=== PATIENT | male | born 1950 | race Caucasian/White ===

== ENCOUNTER 2020-04-08 06:25 | Day surgery (SDC) | payer BC ==
[~2020-04-08] VITALS: Ht 172.7 cm; Wt 89.0 kg
[~2020-04-08 06:25] MED LIST: ALPR.25 PO; ALPR.5 PO; ASPI325 PO; ASPI81CH PO; ATOR80 PO; Adult Low Dose81 MG PO; CLOP75 PO; FAMO20 PO; HYDACE10B PO; HYDMOR2 PO; HYDR1TAB94 PO; LANS30EC PO; LIVALO2 MG PO; METO25ER PO; NEXIUM 24HR20 M1 PO; NITR.4SL PO; NITR.4SL SL; NITR.6SL SL; OMEP20ER PO; OXYACE5T PO; OXYACE7.5T PO; OXYC10ER PO; PANT40 PO; Prenatabs FA T1 EACH PO; ROSU10TA PO; TAMS.4ER PO; TICA90TA PO
--- NOTE | 2020-04-08 14:38 | NUR ---
TR BAND IS FULLY DEFLATED, NO ACTIVE BLEEDING, WILL REMOVE TR BAND IN ONE HOUR, ARM BOARD REMAINS IN PLACE. GOOD PULSES NOTED
--- NOTE | 2020-04-08 15:45 | NUR ---
TR BAND REMOVED, NO ACTIVE BLEEDING, TEGADERM IN PLACE, ARM BOARD REMAINS IN PLACE. RADIAL PULSE STRONG
--- NOTE | 2020-04-08 17:38 | NUR ---
SHIFT NOTE PT [facility]IVED [facility] POST HEART STENT X2 TO RCA. TR BAND IS COMPLETELY RECOVERED, NO ACTIVE BLEEDING NOTED. TEGADERM IN PLACE, ARM BOARD IN PLACE. PT ALERT, ANSWERS QUESTIONS SLOWLY, HE DOES NOT HAVE GOOD UNDERSTANDING OF HIS OWN HISTORY, BUT IS AWARE OF HIS SURROUDNINGS, SELF, AND EVENT. VSS. PT SITTING UP EATING INDEPENDANTLY. PT DENIES SOB OR CP STS "I FEEL A WHOLE LOT BETTER THAN WHEN I CAME IN" SKIN PWD AND INTACT
--- NOTE | 2020-04-09 06:47 | NUR ---
SHIFT SUMMARY NO ACUTE CHANGES THIS SHIFT. PT A&OX4. SP02>92% ON 3L NC. TELEMETRY READS SR, 80'S. PT HAS R RADIAL SITE WHICH WAS DRESSING IN CLEAR OPSITE BY DAY SHIFT. PT DRESSING HAD SCANT AMOUNT OF DRIED BLOOD BUT NO ACTIVE OOZING, NO HEMATOMA, NO BRUISING THIS SHIFT. SITE SOFT, PT DENIES PAIN. PT UP TO BATHROOM WITHOUT CALLING DURING NIGHT. EDUCATED PT ON IMPORTANCE OF USING CALL LIGHT FOR SAFETY. PT C/O OF UNCOMFORTABLE BED. ARRANGED CORDS, REMOVED GOWN, BROUGHT WARM BLANKET AND OFFERED HEAT PAD. PT STATES HE IS EAGER TO GO HOME. CALL LIGHT IN REACH. WILL CONTINUE TO MONITIOR.
--- NOTE | 2020-04-09 11:53 | NUR ---
PT DISCHARGED TO HOME TODAY WITH DISCHARGED ORDERS, PT TO CONTINUE CURRENT MEDS AT HOME, NO NEW MEDS. PT VITALS HAS BEEN STABLE, NO OTHER ISSUES ENCOUNTERED FOR THE SHIFT. RIGHT RADIAL SITE WITH TRANSPARENT DRESSING CDI, NO REDNESS/HEMATOMA NOTED AROUND THE SITE. SITE CARE INFORMATION PROVIDED. DISCHARGE INTRUCTIONS DISCLOSED WITH PT AND THE , PT TO FOLLOW UP WITH DR CALI WITHIN 2 WEEKS. ALL BELONGINGS SENT WITH PT, ACCOMPANIED BY PCT VIA WHEELCHAIR FOR TRANSPORT.
== END 2020-04-09 11:50 | disposition home or self-care (01) ==
LOC: MHTC 06:25 → PCU 10:40 → ENPENDDIS 04-09 08:55 → MHTC 04-09 11:50
PROC: B2111ZZ Fluoroscopy of Multiple Coronary Arteries using Low Osmolar Contrast (ICD-10-PCS; principal; 2020-04-08)
PROC: 4A023N7 Measurement of Cardiac Sampling and Pressure, Left Heart, Percutaneous Approach (ICD-10-PCS; principal; 2020-04-08)
PROC: 027034Z Dilation of Coronary Artery, One Artery with Drug-eluting Intraluminal Device, Percutaneous Approach (ICD-10-PCS; principal; 2020-04-08)
DX: I25.10 Atherosclerotic heart disease of native coronary artery without angina pectoris (principal); E78.5 Hyperlipidemia, unspecified; Z95.5 Presence of coronary angioplasty implant and graft; Z79.02 Long term (current) use of antithrombotics/antiplatelets; Z79.82 Long term (current) use of aspirin; Z79.899 Other long term (current) drug therapy; Z87.891 Personal history of nicotine dependence; Z88.8 Allergy status to other drugs, medicaments and biological substances; Z23 Encounter for immunization
CPT/HCPCS: 85347; 92978; 93458; 99152; 99153; A9270-GY; C1725; C1753; C1769; C1874; C1887; C1894; C9607; J1644; J1650; J2250; J3010; J7030; Q9967

== ENCOUNTER 2021-12-22 07:17 | Day surgery (SDC) | payer MEDICARE ==
[~2021-12-22] VITALS: Ht 167.6 cm; Wt 82.7 kg
[2021-12-22] MEDS ORDERED: OXYC10ER PO (07:37)
[2021-12-22] MEDS ORDERED: DONE5 PO (07:38)
[2021-12-22] MEDS ORDERED: CHOLESTOFF PO (07:41)
--- NOTE | 2021-12-22 08:22 | NUR ---
History, Chart, Medications and Allergies reviewed before start of procedure. Patient confirms NPO status and agrees with scheduled surgery. Lungs clear T/O to Auscultation.
--- NOTE | 2021-12-22 12:53 | NUR ---
RECIEVED PATIENT AND REPORT FROM CARDIAC MONITOR TECHNICIAN DAVE. ICE PACK IN PLACE GIVEN COFFEE PER REQUEST. 3 PORTS SITES WITH SKIN GLUE INTACT
--- NOTE | 2021-12-22 13:33 | NUR ---
Discharge instructions reviewed with patient. Patient verbalizes understanding. Copy given to patient to take home. Discharged via wheelchair to private car for ride home.
--- NOTE | 2021-12-25 09:49 | NUR ---
12/25/21 0949 [place] VERIFICATIONS: EDIT CHART.
== END 2021-12-22 23:01 | disposition home or self-care (01) ==
LOC: ORSCMMR 07:17 → ORD 08:45 → ORSCMMR 23:01
DX: K40.90 Unilateral inguinal hernia, without obstruction or gangrene, not specified as recurrent (principal); D17.6 Benign lipomatous neoplasm of spermatic cord; I25.10 Atherosclerotic heart disease of native coronary artery without angina pectoris; Z87.891 Personal history of nicotine dependence; Z79.899 Other long term (current) drug therapy
CPT/HCPCS: 49650; S2900; 88304; 93005; 93010; A9270; C1781; J0690; J1100; J2250; J2405; J2704; J3010; J7120